=== PATIENT | female | born 1960 | race Hispanic/Latino ===

== ENCOUNTER → 2019-08-14 | Outpatient (CLI) | payer OTHER ==
--- NOTE | 2019-08-14 11:24 | Diagnostic Imaging Report ---
EXAM: US ABDOMEN COMPLETE DATE: 08/14/2019 10:20 AM INDICATION: Right upper quadrant pain COMPARISON: None TECHNIQUE: Transverse and longitudinal garcia scale and color doppler sonographic images of the upper abdomen were obtained. FINDINGS: There is no evidence of fluid or masses seen in the area of clinical concern in the right lower quadrant. LIVER 11.1 cm in the right midclavicular line. Increased echogenicity of the liver with normal contour, no masses. SPLEEN 6.7 cm in maximum diameter. Normal echogenicity, no masses. GALLBLADDER Mild sludge in the gallbladder. No gallbladder wall thickening, distension, stone, or pericholecystic fluid. Negative reported sonographic Brown's sign. Gallbladder wall measures 3 mm. BILE DUCTS No intra nor extra-hepatic biliary dilation. Common bile duct measures 2 mm. PANCREAS: Visualized portions are normal. RIGHT KIDNEY: 10.8 cm Echogenicity: Normal Collecting System: No hydronephrosis Stones: None Cyst/Mass: None LEFT KIDNEY: 9.1 cm Echogenicity: Normal Collecting System: No hydronephrosis Stones: None Cyst/Mass: None VESSELS: Aorta: Visualized portions are within normal size limits Inferior Vena Cava: Visualized portions are normal Main Portal Vein: 1.0 cm, normal size with hepatopetal flow. FREE FLUID: None IMPRESSION: Mild sludge in the gallbladder. No sonographic evidence of cholecystitis. Hepatic steatosis. Signed by: Deidre Dewitt MD on 08/14/2019 11:20 AM
== END ==
LOC: US 10:12
PROVIDERS: ATTEND Internal Medicine Gastroenterology
DX: R10.11 Right upper quadrant pain (principal)
CPT/HCPCS: 76700

== ENCOUNTER → 2019-08-28 | Day surgery (SDC) | payer OTHER ==
[~2019-08-28] MED LIST: AMITRIPTYLINE H25 MG PO; CENTRUM MULTIVITAMIN PO; LEVOTHYROXINE150 MCG PO; PROPOFOL IV EMULSION 10 MG/ML 50 ML VIAL ONE; RIZATRIPTAN10 M1 PO; turkey tail PO
[2019-08-28 16:24] VITALS: BP 104/71
--- NOTE | 2019-08-28 21:59 | Operative Report ---
DATE OF PROCEDURE: 08/28/2019 SURGEON: Aj Mortensen MD PROCEDURE: EGD with biopsies and esophageal dilatation. INDICATIONS FOR EGD: Dysphagia, upper abdominal pain. MEDICATION: The patient was done under MAC. Please see anesthesiologist's note. PROCEDURE IN DETAIL: With the patient in left lateral decubitus position, the flexible fiberoptic Olympus gastroscope was introduced into the esophagus under direct visualization without any difficulty. There was some patchy erythema noted in distal esophagus. There was a mild stricture noted at the GE junction that was dilated to size 52-[place] Gabriel. The scope was then advanced with ease into the stomach. Mucosa overlying the antrum and the body revealed some patchy intense erythema and moderate edema and biopsies were obtained and sent to stain for H. pylori. Pylorus was of normal contour and shape. It was intubated with ease and the scope was advanced all the way to the second portion of the duodenum. There were several minute scattered ulcers in the proximal second portion as well as in the distal duodenal bulb without active bleeding. Biopsies were obtained from the proximal second portion and duodenal bulb to rule out sprue. The scope was then withdrawn back into the stomach and retroflexed. Mucosa overlying the fundus and cardia appeared to be within normal limits. The scope was then straightened out. It was subsequently withdrawn. The patient tolerated procedure well. IMPRESSION: 1. Distal esophagitis, mild. 2. Esophageal stricture at GE junction dilated to size 52-Ken[place] Gabriel. 3. Gastritis, biopsied. Biopsies sent to stain for H. pylori. 4. Scattered minute ulcers distal bulb and proximal second portion without active bleeding or stigmata of recent hemorrhage. 5. Rule out sprue. PLAN: Follow up histology. Initiate Protonix 40 mg one p.o. q.a.m. a.c. Aj Mortensen MD [place] /[id number] cc: Dr. Argelia Reyes
--- OUTSIDE RECORDS SUMMARY | 2019-09-04 11:52 | XMS REPORT ---
Author Author [facility] Address Unknown Phone Unavailable Care Team Providers Care [employer] Engineer Name Role Phone MELIA HAWTHORNE Unavailable Unavailable Problems This patient has no known problems. Allergies, Adverse Reactions, Alerts This patient has no known allergies or adverse reactions. Medications This patient has no known medications. Results Test Description Test Time Test Comments Text Results Atomic Results Result Comments US ABDOMEN COMPLETE 2019-08-14 11:18:00 [place] [address] Patient Name: SAURABH HENAO MR #: [id number] : 1960 Age/Sex: 59/F Req #: [id number] Adm Physician: Ordered by: MELIA HAWTHORNE MD Report #: [id number] Location: US Room/Bed: Procedure: [id number] US/US ABDOMEN COMPLETE Exam Date: Exam Time: REPORT STATUS: Signed EXAM: US ABDOMEN COMPLETE DATE: 08/14/2019 10:20 AM INDICATION: Right upper quadrant pain COMPARISON: None TECHNIQUE: Transverse and longitudinal garcia scale and color doppler sonographic images of the upper abdomen were obtained. FINDINGS: There is no evidence of fluid or masses seen in the area of clinical concern in the right lower quadrant. LIVER 11.1 cm in the right midclavicular line. Increased echogenicity of the liver with normal contour, no masses. SPLEEN 6.7 cm in maximum diameter. Normal echogenicity, no masses. GALLBLADDER Mild sludge in the gallbladder. No gallbladder wall thickening, distension, stone, or pericholecystic fluid. Negative reported sonographic Brown's sign. Gallbladder wall measures 3 mm. BILE DUCTS No intra nor extra-hepatic biliary dilation. Common bile duct measures 2 mm. PANCREAS: Visualized portions are normal. RIGHT KIDNEY: 10.8 cm Echogenicity: Normal Collecting System: No hydronephrosis Stones: None Cyst/Mass: None LEFT KIDNEY: 9.1 cm Echogenicity: Normal Collecting System: No hydronephrosis Stones: None Cyst/Mass: None VESSELS: Aorta: Visualized portions are within normal size limits Inferior Vena Cava: Visualized portions are normal Main Portal Vein: 1.0 cm, normal size with hepatopetal flow. FREE FLUID: None IMPRESSION: Mild sludge in the gallbladder. No sonographic evidence of cholecystitis. Hepatic steatosis. Signed by: Blanca Dewitt MD on 08/14/2019 11:20 AM Dictated By: BLANCA DEWITT MD 1120 Transcribed By: YESSI on 08/14/19 1120 COPY TO: MELIA HAWTHORNE MD
--- OUTSIDE RECORDS SUMMARY | 2019-09-04 11:52 | XMS REPORT ---
Author Author Admin, [place] Organization [facility] Address [address] [address] Phone Allergies, Adverse Reactions, Alerts Allergy Name Reaction Description Start Date Severity Status Provider Allergies Unknown Conditions or Problems Problem Name Problem Code Onset Date Status Entry Date Provider Comment Standard Description Annotate Menopause symptoms 627.2 Active Desmond Gordon MD Symptomatic menopausal or female climacteric states Medication List Medication Instructions Start Date Stop Date Generic Name NDC Status Provider Patient Instruction Drug Treatment Unknown - unknown Vital Signs Date Name Value Unit Range Description blood pressure, diastolic 77 mm[Hg] BP suarez blood pressure, systolic 117 mm[Hg] BP sys height E&M 60 [in_us] Bdy height pulse rate E&M 95 /min Heart rate respiratory rate E&M 17 /min Resp rate temperature E&M 98.9 [degF] Body temperature weight E&M 141 [lb_av] Weight Measured Encounters Date Encounter Provider Code Facility 09:38:10 CDT Est Patient Exp Problem - 23761 Desmond Gordon MD [id number] [place] [employer]
== END | disposition home or self-care (01) ==
LOC: OR 09:12
PROVIDERS: ATTEND Internal Medicine Gastroenterology
DX: K22.2 Esophageal obstruction (principal); K29.50 Unspecified chronic gastritis without bleeding; K26.9 Duodenal ulcer, unspecified as acute or chronic, without hemorrhage or perforation; K21.0 Gastro-esophageal reflux disease with esophagitis; E03.9 Hypothyroidism, unspecified; R03.0 Elevated blood-pressure reading, without diagnosis of hypertension; F32.9 Major depressive disorder, single episode, unspecified; Z01.810 Encounter for preprocedural cardiovascular examination; Z68.26 Body mass index [BMI] 26.0-26.9, adult
CPT/HCPCS: 43239; 43450; 93005

== ENCOUNTER → 2020-01-22 | Outpatient (CLI) | payer OTHER ==
[~2020-01-22] MED LIST changes: -PROPOFOL IV EMULSION 10 MG/ML 50 ML VIAL ONE
--- NOTE | 2020-01-22 18:53 | Diagnostic Imaging Report ---
Hepatobiliary Scan with Gallbladder Ejection Fraction Clinical information: R10.11: RUQ pain Report: Following intravenous administration of 6.5 millicuries of Tc-99m mebrofenin, dynamic images of the abdomen in the anterior projection were obtained through 10 minutes. Sincalide (CCK analog) 1.3 micrograms was administered intravenously over 30 minutes with additional imaging for determination of gallbladder ejection fraction. Perfusion to the liver is normal. Extraction of tracer from the blood pool by the liver parenchyma is normal. Tracer is seen promptly within the biliary tract. The gallbladder begins to fill by 3 minutes post-injection of tracer and fills adequately. Tracer is seen in the small bowel during the sincalide infusion. The gallbladder ejection fraction with administration of sincalide is 84% (normal greater than 40%). Impression: 1. Filling of the gallbladder excludes the diagnosis of acute cystic duct obstruction/acute cholecystitis. 2. Normal gallbladder ejection fraction of 84% does not support the clinical diagnosis of chronic cholecystitis/gallbladder dyskinesia. Signed by: Dr. Kaycee Cameron M.D. on 01/22/2020 6:50 PM
== END ==
LOC: NM 12:10
PROVIDERS: ATTEND Internal Medicine Gastroenterology
DX: R10.11 Right upper quadrant pain (principal)
CPT/HCPCS: 78227; A9537

== ENCOUNTER → 2020-12-07 | Outpatient (CLI) | payer OTHER | LOC: US 09:49 | PROVIDERS: ATTEND Internal Medicine Endocrinology, Diabetes & Metabolism | DX: E04.9 Nontoxic goiter, unspecified (principal) | CPT/HCPCS: 76536 ==

== ENCOUNTER → 2021-02-14 | Outpatient (CLI) | payer OTHER | LOC: RAD 15:16 | PROVIDERS: ATTEND Specialist | DX: R68.84 Jaw pain (principal); M26.649 Arthritis of unspecified temporomandibular joint; R25.2 Cramp and spasm | CPT/HCPCS: 70330; 72050 ==

== ENCOUNTER → 2021-02-24 | Outpatient (CLI) | payer OTHER | LOC: DX 08:59 | PROVIDERS: ATTEND Specialist | DX: R13.10 Dysphagia, unspecified (principal); R12 Heartburn | CPT/HCPCS: 74220; 74246 ==

== ENCOUNTER → 2021-05-18 | Outpatient (CLI) | payer OTHER | LOC: RAD 10:02 | PROVIDERS: ATTEND Internal Medicine Rheumatology | DX: M51.26 Other intervertebral disc displacement, lumbar region (principal); M54.2 Cervicalgia; M79.642 Pain in left hand; M79.641 Pain in right hand | CPT/HCPCS: 72050; 72110 ==

== ENCOUNTER → 2021-05-18 | Outpatient (CLI) | payer OTHER | LOC: MAMMO 09:52 | PROVIDERS: ATTEND General Practice | DX: N64.4 Mastodynia (principal) | CPT/HCPCS: 77066 ==

== ENCOUNTER → 2021-06-12 | Outpatient (CLI) | payer OTHER | LOC: RAD 11:51 | PROVIDERS: ATTEND Specialist | DX: M54.2 Cervicalgia (principal); M43.6 Torticollis; M60.9 Myositis, unspecified; H81.8X9 Other disorders of vestibular function, unspecified ear; H81.10 Benign paroxysmal vertigo, unspecified ear; H55.00 Unspecified nystagmus; J34.89 Other specified disorders of nose and nasal sinuses; J34.2 Deviated nasal septum; J31.0 Chronic rhinitis; B27.00 Gammaherpesviral mononucleosis without complication | CPT/HCPCS: 70330; 72050 ==

== ENCOUNTER 2021-06-30 23:41 | Emergency (ER) | payer OTHER ==
[~2021-06-30] VITALS: Ht 154.9 cm; Wt 65.8 kg
[2021-06-30] MEDS ORDERED: ONDANSETRON HCL INJ 2MG/ML 2ML 2 MG/ML VIAL IV STA (23:47)
[2021-06-30] MEDS ORDERED: KETOROLAC TROMETHAMINE 30 MG/ML VIAL IV STA (23:47)
[2021-06-30 23:58] LABS: BASOPHILS # (AUTO) 0.1 (0.0-0.1); BASOPHILS % 0.3 % (0.0-1.0); EOSINOPHILS # (AUTO) 0.1 (0.0-0.4); EOSINOPHILS % 0.6 % (0.0-6.0); HEMATOCRIT 39.7 % (34.2-44.1); LYMPHOCYTES # (AUTO) 3.6 (1.0-3.2); LYMPHOCYTES % 22.9 % (18.0-39.1); MEAN CORPUSCULAR HEMOGLOBIN 28.3 pg (28-32); MEAN CORPUSCULAR HGB CONC 32.7 g/dL (31-35); MEAN CORPUSCULAR VOLUME 86.3 fL (81-99); MONOCYTES # (AUTO) 1.4 (0.2-0.8); NEUTROPHILS # (AUTO) 10.6 (2.1-6.9); NEUTROPHILS % 66.7 % (38.7-80.0); PLATELET COUNT 333 x10e3/uL (140-360); RED CELL DISTRIBUTION WIDTH 14.1 % (11.7-14.4)
[2021-06-30] MEDS ORDERED: SODIUM CHLORIDE 0.9% 1000ML 1,000 ML ONE (23:58)
[2021-07-01 00:06] LABS: CLARITY,URINE CLOUDY (CLEAR); COLOR,URINE YELLOW (YELLOW); KETONES,URINE NEGATIVE (NEGATIVE); LEUKOCYTE ESTERASE ,URINE NEGATIVE (NEGATIVE); NITRITE,URINE NEGATIVE (NEGATIVE); PROTEIN,URINE DIPSTICK NEGATIVE (NEGATIVE); URINE UROBILINOGEN 0.2 mg/dL (0.2 - 1)
[2021-07-01 00:14] LABS: AMORPHOUS SEDIMENT,URINE MANY (FEW); BACTERIA,URINE FEW /HPF; EPITHELIAL CELLS,URINE FEW /LPF; WBC,URINE (MAN) 0-5 /HPF (0-5)
[2021-07-01 00:17] LABS: ALBUMIN/GLOBULIN RATIO 1.3 (0.8-2.0); ANION GAP 19.7 mmol/L (8-16); CALCIUM 9.1 mg/dL (8.4-10.2); CREATININE, SERUM 0.97 mg/dL (0.57-1.11); POTASSIUM 3.7 mmol/L (3.5-5.1)
[2021-07-01 01:15] VITALS: BP 123/70
[2021-07-01] MEDS ORDERED: ONDANSETRON ODT4 MG PO (01:15)
[2021-07-01] MEDS ORDERED: CEFDINIR300 MG PO (01:15)
[2021-07-01] MEDS ORDERED: KETOROLAC TROME10 MG PO (01:15)
[2021-07-01] MEDS ORDERED: HYDROCODON-ACE1 EAC9 PO (01:15)
== END 2021-07-01 01:31 | disposition home or self-care (01) ==
LOC: ER 23:49
DX: R10.32 Left lower quadrant pain (principal); N13.2 Hydronephrosis with renal and ureteral calculous obstruction; R11.2 Nausea with vomiting, unspecified; R91.8 Other nonspecific abnormal finding of lung field; M79.7 Fibromyalgia
CPT/HCPCS: 36415; 74176; 80053; 81001; 85025; 99284; J1885; J2405; J7030

== ENCOUNTER → 2021-08-14 | Day surgery (SDC) | payer OTHER ==
[~2021-08-14] MED LIST changes: +CEFDINIR300 MG PO; +CEFTRIAXONE 1 GM VIAL ONE; +CYCLOBENZAPRINE10 MG PO; +DEXAMETHASONE SOD PHOS INJ 4 MG/ML SDV ONE; +FENTANYL CITRATE/PF 100MCG/2 ML INJ ONE; +FLOMAX0.4 MG PO; +FLONASE ALLERG9.9 ML INH; +HYDROCODON-ACE1 EAC9 PO; +IOPAMIDOL 300MG/ML 50ML INFUS..BTL IV ONE; +KETOROLAC TROME10 MG PO; +LIDOCAINE HCL 2% LOCAL INJ 5 ML SDV VIAL INJ ONE; +METOCLOPRAMIDE HCL 10 MG/2ML VIAL ONE; +MIDAZOLAM HCL 2 MG/2 ML VIAL ONE; +MOBIC7.5 MG PO; +MONTELUKAST SOD10 MG PO; +OMEPRAZOLE40 MG PO; +ONDANSETRON HCL INJ 2MG/ML 2ML 2 MG/ML VIAL ONE; +ONDANSETRON ODT4 MG PO; +POVIDONE IODINE 0.05% 0.05 % ML PO ONE; +PROPOFOL IV EMULSION 10 MG/ML 20 ML VIAL ONE; +SEVOFLURANE INHAL SOLN 250 ML PEN BTL ONE; +SODIUM CHLORIDE 0.9% 50ML 50 ML ONE; +TIZANIDINE HCL4 MG PO
[2021-08-14 08:05] VITALS: BP 117/73
== END | disposition home or self-care (01) ==
LOC: OR 06:21
PROVIDERS: ATTEND Urology
DX: N20.0 Calculus of kidney (principal); Z88.6 Allergy status to analgesic agent; Z88.1 Allergy status to other antibiotic agents; N13.30 Unspecified hydronephrosis; R35.1 Nocturia; N20.1 Calculus of ureter; I10 Essential (primary) hypertension; E03.9 Hypothyroidism, unspecified; K21.9 Gastro-esophageal reflux disease without esophagitis; K76.0 Fatty (change of) liver, not elsewhere classified; F41.9 Anxiety disorder, unspecified; Z01.810 Encounter for preprocedural cardiovascular examination; Z01.812 Encounter for preprocedural laboratory examination; Z01.818 Encounter for other preprocedural examination; Z20.822 Contact with and (suspected) exposure to COVID-19; Z79.899 Other long term (current) drug therapy
CPT/HCPCS: 52005; 74018; 74420; 93005; C1758; J0696; J1100; J2001; J2250; J2405; J2704; J2765; J3010; Q9967; U0002